=== PATIENT | female | born 1985 | race Two or more races ===

== ENCOUNTER 2024-07-23 08:40 | Emergency (ER) | payer MEDICAID, SELFPAY ==
[2024-07-23 09:03] VITALS: BP 102/66; PULSE 110; RESP 15; TEMP 37.3; O2SAT 98
[2024-07-23 09:19] VITALS: BP 123/70; PULSE 120; O2SAT 99; BMI 23.8
--- NOTE | 2024-07-23 09:29 | ED_ITS ---
HPI - URI/Sore Throat General Chief Complaint: Headache Stated Complaint: Headache, nausea, SOBx2 days per EMS Time Seen by Provider: 07/23/24 09:12 Source: patient and EMS Mode of arrival: EMS Limitations: no limitations History of Present Illness ED Provider: Kristina Cisneros PA-C HPI Narrative: 39 yo female presents to the ER for evaluation of SOB, headache, body aches, and sore throat that started last night. She reports diffuse aches and pains in her muscles and bones. She has a mild nonproductive cough. She reports subjective fevers and chills. No abdominal pain, N/V/D. No chest pain. She reports her daughter is home with a similar illness but milder symptoms. MD elicited complaint: fever, cough, sore throat and other (body aches, headache) Onset (ago): hour(s) Consistency: progressively worsening Severity: severe Able to tolerate fluids by mouth: Yes Exacerbating factors: nothing Relieving factors: nothing Context: sick contacts Associated symptoms: fever, chills, myalgias, headache, sore throat, cough and shortness of breath Treatments prior to arrival: none Related Data Previous Rx's ?Medication ?Instructions ?Recorded acetaminophen 650 mg 650 mg PO Q8H PRN fever or pain 07/23/24 tablet,extended release #14 tabs ibuprofen 600 mg tablet 600 mg PO Q8H PRN fever or pain 07/23/24 #14 tabs Allergies Allergy/AdvReac Type Severity Reaction Status Date / Time No Known Allergies Allergy Verified 07/23/24 09:41 [No Known Allergies*] Review of Systems Review of Systems: Yes all other systems are reviewed and are negative [facility] Social History Social History Advance Directives: No Advance Directives Information Provided: Yes Advance Directives on File: No Physical Exam Vital Signs: Vital Signs: Last Vital Signs Temp 99.2 F 07/23/24 09:03 Pulse 110 H 07/23/24 09:03 Resp 15 07/23/24 09:03 BP 102/66 07/23/24 09:03 Pulse Ox 98 07/23/24 09:03 O2 Del Method Room Air 07/23/24 09:03 BMI result Body Mass Index 23.8 Appearance: Alert. Oriented X3. No acute distress. Head: normocephalic, atraumatic. Eyes: Pupils equal, round and reactive to light. ENT: Pharynx normal. No tonsillar swelling or exudate. Neck: Normal inspection. Neck supple. CVS: Normal heart rate and rhythm. Pulses normal. Respiratory: No respiratory distress. Breath sounds normal. Abdomen: Soft and nontender. +BS x4 Skin: Skin warm and dry. Normal skin color. Normal skin turgor. No rashes. Extremities: No lower extremity edema. No joint swelling. Neuro/psych: Oriented X 3. grossly normal, nonfocal. Normal speech and cognition. Medications Administered Discontinued Medications Generic Name Dose Route Start Last Admin Trade Name Husam PRN Reason Stop Dose Admin Acetaminophen 975 mg 07/23/24 09:48 07/23/24 10:12 Acetaminophen 325 Mg Tablet PO 07/23/24 09:49 975 mg ONCE ONE Administration Ketorolac Tromethamine 15 mg 07/23/24 09:48 07/23/24 10:12 Ketorolac Tromethamine 15 Mg/Ml Vial IVPUSH 07/23/24 09:49 15 mg ONCE ONE Administration Medical Decision Making Medical Decision Making [facility] Narrative: 39 yo female presenting with myalgias, headache, fever/chills since last night. daughter home with what she thinks is the flu. she is unvaccinated. mild tachycardia on arrival, otherwise VSS. lungs are clear and physical exam unremarkable. main complaint is body aches. IVF given by EMS. will give toradol, tylenol and swab for covid, flu, rsv, strep swabs negative. patient feeling better after meds. most likely viral etiology. stable for d/c home. Differential Diagnosis Differential Diagnoses: The differential diagnosis associated with the presentation includes strep, covid, flu, rsv, other viral syndrome, bronchitis, pneumonia, no evidence of peritonsillar abcsess or retropharyngeal abscess Lab Data [facility] Lab Attestation statement: I reviewed the patient's lab results. Labs: Lab Results 07/23/24 07/23/24 Range/Units 09:30 10:38 Influenza Type A (PCR) NEGATIVE (Negative) Influenza Type B (PCR) NEGATIVE (Negative) RSV RNA Qual (PCR) NEGATIVE (Negative) SARS-CoV-2 RNA (RT-PCR) NEGATIVE (Negative) S. pyogenes GrpA MESHA Negative (Negative) Independent Historian Clinical information obtained from an independent historian. History obtained from or confirmed by: EMS External Record Review External record reviewed: Outpatient record and Prior outpatient labs Tests considered The following testing was considered but not selected: considered CXR, lungs clear. low suspicion for pna Prescription Management I considered prescription management with: Pain Medication, Antiviral and Antibiotic Critical Care Time Critical Care Time Critical Care Time: No Discharge Plan Discharge Clinical Impression: Acute viral syndrome Patient Disposition: Home, Self-Care Instructions: Viral Syndrome (ED) Additional Instructions: You were negative for COVID, Flu, RSV and Strep throat Your symptoms are likely due to another viral illness Rest. Drink plenty of fluids. Do not go out in public while you are not feeling well Take over the counter cold/flu medications as needed for your symptoms. Take Tylenol and Motrin as needed for fevers and body aches. Follow up with your doctor as needed If you develop new or worsening symptoms call 911 or come back to the ER for further evaluation. Prescriptions: New ibuprofen 600 mg tablet 600 mg PO Q8H PRN (Reason: fever or pain) Qty: 14 0RF acetaminophen 650 mg tablet extended release 650 mg PO Q8H PRN (Reason: fever or pain) Qty: 14 0RF Interventions: ED Discharge Assessment Last Done: 07/23/24 13:07 Print Language: Maori
[2024-07-23] MEDS: Acetaminophen 325 MG TABLET 975 MG PO (10:12)
[2024-07-23] MEDS: Ketorolac Tromethamine 15 MG/ML VIAL IVPUSH (10:12)
--- OUTSIDE RECORDS SUMMARY | 2024-07-23 10:19 | XMS_ITS | Encounter Summary ---
Author Organization [facility] Address [address] [place] [address] Care Team Providers Care Meeting Facilitator Name Role Phone Cynthia Pickett SENIOR QUALITY ANALYST Primary Care Provider [phone] Encounter Details Date Type Department Care Team (Late st Contact Info) Description 02/13/2022 Interim Notes [address] [address] [place] [address] [place] [address] Social History Tobacco Use Types Packs/Day Years Used Date Smoking Tobacco: Never Smokeless Tobacco: Never Alcohol Use Standard Drinks/Week Comments No 0 (1 standard drink = 0.6 oz pur e alcohol) Social Connections Answer Date Recorded Connectedness 0 01/02/2022 Financial Resource Strain Answer Date R ecorded Financial Resource Strain 0 2021 Stress Answer Date Recorded Stress 0 01/02/2022 Physical Activity Answer Date Recorded Physical Activity 0 01/31/2019 Food Insecurity Answer Date Recorded Food 0 01/02/2022 Transportation Needs Answer Date Record ed Transportation 0 01/02/2022 Housing Stability Answer Date Recorded Housing 0 01/02/2022 Safety and Environment Answer Date Connor rded Safety 1 05/01/2021 Utilities Answer Date Recorded Utilities 0 01/02/2022 Employment Answer Date Recorded Stress 0 08/27/2021 Comments No Sex and Gender Information Value Date Recorded Sex Assigned at Female 03/27/2017 7:05 AM PDT Legal Sex Female 11:37 AM PDT Gender Identity Female 03/27/2017 7:05 AM PDT Sexual Orientation Straight 03/31/2017 5: 55 AM PDT COVID-19 Exposure Response Date Recorded In the last 10 days, have yo u been in contact with someone who was confirmed or suspected to have Coronavirus/COVID-19? No / Unsure 02/05/2022 1:25 PM EDT documented as of this encounter Plan of Treatment Upcoming Encounters Date Type Department Care Team (Late st Contact Info) Description 08/17/2024 3:40 PM EDT Office Visit [facility] [address] [place] [address] Xochitl Hernández FNP [address] [place] [address] documented as of this encounter Visit Diagnoses Not on filedocumented in this encounter Additional Health Concerns Assessment Noted Time PHQ-9 Depression Total Score: 0 01/03/20 22 10:33 AM PDT documented as of this encounter Care Teams Meeting Facilitator Relationship Specialty Start Date End Date Cynthia Pickett FNP [address] [place] [address] PCP - General Internal Medicine 04/05/20 documented as of this encounter
--- OUTSIDE RECORDS SUMMARY | 2024-07-23 10:19 | XMS_ITS | Clinical Summary ---
Author Organization [facility] Address [address] [place] [address] Care Team Providers Care Industrial Cleaner Name Role Phone Cynthia Pickett [facility] Primary Care Provider [phone] Source Comments PLEASE NOTE, if this patient is a minor, it may be UNLAWFUL to discuss sensitive information that is contained in these records (such as FAMILY PLANNING, MENTAL HEALTH or SUBSTANCE ABUSE) with the minor patient's parent or other person without the patient's specific authorization.[facility] Allergies No known active allergies Medications clindamycin-stef zoyl peroxide (BENZACLIN) 1-5 % gelIndications: Acne vulgaris Apply topically 2 (two) times daily To acne 50 g 2 3 Active Active Problems Problem Noted Date Diagnosed Date History of COVID-19: 03/202105/01/2021 Hematuria 10/15/2020 Left flank pain 10/12/2020 Overview (10/15/2020): 07/10/2020: US of renal: [facility]: FINDINGS: Right kidney: 12.8 cm in length. No hydronephrosis, stone, or mass. Normal parenchymal thickness and echotexture Left kidney: 12.6 cm in length. No hydronephrosis, stone, or mass. Normal parenchymal thickness and echotexture. Urinary bladder: Normal. No stone, mass, wall thickening or debris. IMPRESSION: Normal kidneys and bladder. 07/10/2020: [facility]: uterus US: FINDINGS: UTERUS: Size: 10.8 x 4.8 x 6.0 cm, volume 164 cc. Endometrial thickness: 1.1 cm. Morphology: Normal configuration and echotexture. RIGHT OVARY: Size: 3.4 x 1.9 x 3.0 cm, volume 10.0 cc. Morphology: Normal echotexture. No pathologic cysts or mass. Normal color Doppler appearance. LEFT OVARY: Size: 4.5 x 2.8 x 2.6 cm, volume 17.3 cc. Morphology: Normal echotexture. Hypoechoic focus in the left ovary measures 1.8 x 1.4 x 1.1 cm. Normal color Doppler appearance. ADNEXA: Normal. No adnexal masses or fluid collections. IMPRESSION: 1.8 cm hypoechoic focus with minimal peripheral vascular flow in the left ovary likely represents an involuting corpus luteum. No cause for pelvic pain is appreciated. Encounters Date Type Department Care Team Description 06/24/2024 11:20 AM EST Office Visit [address] [address] Child, BANDAR Rios Dysuria (Primary Dx) 06/24/2024 Travel from Last 3 Months Immunizations Name Administration Dates Next Due Flu, Preservative Free 05/19/2021,03/06/2018 MENINGOCOCCAL MCV4P (MENACTRA) 05/11/2018 PNEUMOCOCCAL POLYSACCHARIDE PPV23 03/06/2018 PPD 11/06/2018,03/27/2017 TDAP 03/06/2018,05/30/2017 Family History Medical History Relation Name Comments Breast cancer Maternal Grandmother Relation Name Status Comments Father Alive Maternal Grandmother Mother Alive Social History Tobacco Use Types Packs/Day Years [...] and Environment Answer Date Connor rded Safety 0 08/02/2022 Utilities Answer Date Recorded Utilities 0 01/02/2022 Employment Answer Date Recorded Stress 0 08/27/2021 Comments Unknown Sex and Gender Information Value Date Recorded [...] suspected to have Coronavirus/COVID-19? No / Unsure 06/24/2024 11:03 AM EST Last Filed Vital Signs Vital Sign Reading Time Taken Comments Blood Pressure 112/77 06/24/2024 11:23 AM EST Pulse 88 06/24/2024 11:23 AM EST Temperature 36.8 ??C (98.3 ??F) 06/24/2024 11:[address] Respiratory Rate 16 06/24/2024 11:23 AM EST Oxygen Saturation 100% 07/24/2023 3:39 PM EST Inhaled Oxygen Concentration - - Weight 65.4 kg (144 lb 1.6 oz) 06/24/2024 11:23 AM EST Height 157.5 cm (5' 2 ) 07/24/2023 3:39 PM EST Body Mass Index 26.36 07/24/2023 3:39 PM EST Plan of Treatment Upcoming Encounters Date Type Department Care Team (Late st Contact Info) Description 08/17/2024 3:40 PM EDT Office Visit [facility] [address] [place] [address] Xochitl Hernández FNP [address] [place] [address] Health Maintenance Due Date Last Done Comments HPV Screening 1987 Pap + HPV 1987 Cervical Cancer Screening 2008 Pap Smear 2008 Breast Cancer Screening (Mammogram) 01/22/2022 01/22/2021 Relationship Safety Screening/Counseling 08/02/2023 08/02/2022, 05/01/2021, 04/07/2020 [id number] ( season) 2024 022, 06/22/2021 Imm-Influenza (#1) 2024 05/19/2021, 03/06/2018 Annual Preventive Care Visit 06/05/2024, 02/01/2022, 07/07/2020, Additional history exists Alcohol and Drug Screen 06/09/2024 08/02/19 23, 01/02/2022, 07/07/2020, Additional history exists Depression Annual Screen 06/09/2024 08/02/2022, 02/08 Tobacco Screening 07/24/2024 07/24/2023 Hypertension Screening (#1) 06/24/2025 Diabetes Screening 06/05/2026 06/05/2023, 0 02/01/2022, 02/01/2022, Additional history exists Imm-DTaP/Tdap/Td (4 - Td or Tdap) 01/05/2034 01/06/2024, 03/06/2018, 05/30/2017 Hepatitis C Screening Completed 04/06/2018 , 04/06/2018, 04/06/2018, Additional history exists HIV Screening Completed 04/07/2020 Cervical Ablation/Cold-Knife Conization Discontinued Cervical Cryotherapy Discontinued Colposcopy Discontinued Endometrial Biopsy Discontinued Excision/Leep Discontinued HPV Genotyping Discontinued Imm-Hepatitis B Discontinued Vaginal Pap Discontinued Vulvoscopy Discontinued Procedures Procedure Name Priority Date/Time Associated Diagnosis Comments RFLX - REFLEXIVE URINE CULTURE Routine 06/24/2024 11:40 AM EST URINALYSIS, COMPLETE W/REFLEX TO CULTURE Routine 06/24/2024 11:40 AM EST Dysuria HCG URINE MCKESSON (POCT) Routine 06/24/2024 11:37 AM EST Dysuria URINALYSIS, MULTISTIX (POCT) Routine 06/24/2024 11:37 AM EST Dysuria BASIC METABOLIC PANEL CALCIUM TOTAL Routine 06/05/2023 11:57 AM EST Screening due Weight gain ANTIBODY HIV-1&HIV-2 SINGLE RESULT Routine 04/07/2020 4:05 PM EDT Encounter for laboratory test HEPATITIS A,B,C PANEL Routine 04/06/2018 1:29 PM EDT Routine general medical examination at a [facility] care facility from Last 3 Months or Most Recently Relevant to Health Maintenance Results * (ABNORMAL) URINALYSIS, COMPLETE W/REFLEX TO CULTURE (06/24/2024 11:40 AM EST) COLOR YELLOW YELLOW [employer] APPEARANCE CLOUDY(A) CLEAR [employer] SPECIFIC GRAVITY 1.009 1.001 - 1.035 [employer] URINE PH 5.5 5.0 - 8.0 [employer] GLUCOSE NEGATIVE NEGATIVE [employer] BILIRUBIN NEGATIVE NEGATIVE [employer] KETONES NEGATIVE NEGATIVE [employer] OCCULT BLOOD NEGATIVE NEGATIVE [employer] URINE PROTEIN NEGATIVE NEGATIVE [employer] NITRITE NEGATIVE NEGATIVE [employer] LEUKOCYTE ESTERASE NEGATIVE NEGATIVE [employer] URINE LEUKOCYTES NONE SEEN < OR = 5 [employer] RBC NONE SEEN < OR = 2 [employer] SQUAMOUS EPITHELIAL CELLS 20-40(A) < OR = 5 /HPF [employer] BACTERIA NONE SEEN NONE SEEN [employer] HYALINE CAST NONE SEEN NONE SEEN [employer] SEE NOTE See Below [employer] Comment: This urine was analyzed for the presence of WBC, RBC, bacteria, casts, and other formed elements. Only those elements seen were reported. Urine Urine specimen / Unknown 06/24/2024 11:40 AM EST 06/25/2024 7:23 AM EST Gabriel Franco PA-C LAB - NO BLOOD DRAW Final Res ult [employer] [address] [place] [address], [employer] [address] [place] [id number] * RFLX - REFLEXIVE URINE CULTURE (06/24/2024 11:40 AM EST) REFLEXIVE URINE CULTURE See Below [employer] Comment:NO CULTURE INDICATED 06/24/2024 11:4 0 AM EST 06/25/2024 7:23 AM EST Gabriel CARVAJAL-C LAB - NO BLOOD DRAW Final Res ult Performing Organization Address City/[facility] Co de Phone Number [facility] [address] [address], [facility] [address] [address] * (ABNORMAL) URINALYSIS, MULTISTIX (POCT) (06/24/2024 11:37 AM EST) URINE GLUCOSE NEGATIVE NEGATIVE [facility] POCT URINE BILIRUBIN NEGATIVE NEGATIVE [facility] POCT URINE KETONES NEGATIVE NEGATIVE [facility] POCT URINE SPECIFIC GRAVITY 1.010 <=1.005 - >=1.030 [facility] URINE BLOOD SMALL(A) NEGATIVE [facility] URINE PH 5.5 5.0 - 8.5 [facility] URINE PROTEIN Negative Negative [facility] URINE UROBILINOGEN 0.2 0.2 - 1.0 E.U./dL [facility] URINE NITRITE NEGATIVE NEGATIVE [facility] URINE LEUKOCYTES NEGATIVE NEGATIVE [facility] POCT URINE COLOR LIGHT YELLOW STRAW, YELLOW [facility] ODOR URINE Normal Normal [facility] CLARITY OF URINE CLEAR CLEAR [facility] POCT Urine Urine specimen / Unknown 06/24/2024 11:37 AM EST Gabriel CARVAJAL-C LAB - NO BLOOD DRAW Final Res ult Performing Organization Address City/[facility]/ZIP Co de Phone Number [facility] * HCG URINE MCKESSON (POCT) (06/24/2024 11:37 AM EST) URINE HCG NEGATIVE NEGATIVE [facility] POCT INTERNAL CONTROL PASS PASS [facility] POCT Urine Urine specimen / Unknown 06/24/2024 11:37 AM EST Gabriel Franco PA-C LAB - NO BLOOD DRAW Final Res ult [facility] POCT * BASIC METABOLIC PANEL CALCIUM TOTAL (06/05/2023 11:57 AM EST) GLUCOSE 79 65 - 99 mg/dL [employer] Comment: ?Fasting reference interval UREA NITROGEN (BUN) 13 7 - 25 mg/dL [employer] CREATININE (blood) 0.68 0.50 - 0.97 mg/dL [employer] EGFR 116 > OR = 60 mL/min/1. 73m2 [employer] BUN/CREATININE RATIO SEE NOTE: [employer] Comment: ?? Not Reported: BUN and Creatinine are within ?? reference range. ? SODIUM 136 135 - 146 mmol/L [employer] POTASSIUM 4.6 3.5 - 5.3 mmol/L [employer] CHLORIDE 104 98 - 110 mmol/L [employer] CARBON DIOXIDE 26 20 - 32 mmol/L [employer] CALCIUM 9.4 8.6 - 10.2 mg/dL [employer] Blood Blood / Unknown 06/05/2023 1 1:57 AM EST 06/05/2023 11:58 AM EST Petty Peter PA-C LAB - BLOOD DRAW Edited Res ult - Final [email or web address] [address] [address], [employer] [address] [address] * HIV-1 & HIV-2 ANTIBODIES (04/07/2020 4:05 PM EDT) HIV 1 AND 2 ANTIBODY SCREEN NEGATIVE NEGATIVE [facility] Comment: This assay is a 4th generation assay allowing for earlier detection of HIV infection by detecting the presence of the HIV-1 p24 antigen as well as the traditional antibodies to HIV type 1 (including group O) and type 2. ??Use of a 4th generation assay is the current CDC recommendation for HIV screening. Blood Blood / Unknown 04/07/2020 4 :05 PM EDT 04/07/2020 4:34 PM EDT [facility] - 04/07/2020 8:08 PM EDT [facility], a member of [address] [address] Car Carder - Alma Rosa Irby MD [place] [id number] ORD# [id number] Cynthia Pickett FORENSIC TOXICOLOGIST LAB - BLOOD DRAW Final Result [address] [address], [place] [phone] * (ABNORMAL) HEPATITIS A,B,C PANEL (04/06/2018 1:29 PM EDT) Pathologist [facility] HEPATITIS B SURFACE ANTIGEN NEGATIVE NEGATIVE [facility] Comment: Over the counter supplements containing high doses of biotin may interfere with this assay. ??If interference is suspected, patients shoud be retested after refraining from biotin supplements for 72 hours. HEPATITIS B SURFACE ANTIBODY POSITIVE(A) NEGATIVE [facility] HEPATITIS C VIRUS DIAGNOSTIC NEGATIVE NEGATIVE [facility] 04/06/2018 1:29 PM EDT 04/06/2018 1:29 PM EDT [facility] - 04/06/2018 2:37 PM EDT [facility] [address] [place] [address] PT ID [id number] ORD# [id number] Charley Begum FORENSIC TOXICOLOGIST LAB - BLOOD DRAW Final Result Performing Organization Address [facility]/ZIP Co de Phone Number [address] [address], [place] [phone] from Last 3 Months or Most Recently Relevant to Health Maintenance Insurance [place] [employer] [place] [address] [place] [address] PLAN Member Subscriber Plan / Payer (Ef fective 2023-Present) Name:Juliane Moeller Relation to Subscriber:Self Name:Juliane Moeller Payer ID:[id number] Group ID:Not on file Type:Medicaid Address: [address] [address] [place] [address] Care Teams Industrial Cleaner Relationship Specialty Start Date End Date Cynthia Pickett FNP [address] [place] [address] PCP - General Internal Medicine 04/05/20
--- OUTSIDE RECORDS SUMMARY | 2024-07-23 10:19 | XMS_ITS | Encounter Summary ---
Author Organization [facility] Address [address] [place] [address] Care Team Providers Care Ergonomics Technician Name Role Phone Cynthia Pickett SENIOR CHEMICAL ENGINEER Primary Care Provider [phone] Encounter Details Date Type Department Care Team (Latest Contact Info) Description 06/24/2024 Travel Social History Tobacco Use Types Packs/Day Years [...] No / Unsure 06/24/2024 11:03 AM EST documented as of this encounter Plan of Treatment Upcoming Encounters Date Type Department Care Team (Late st Contact Info) Description 08/17/2024 3:40 PM EDT Office Visit [facility] [address] [place] [address] Xochitl Hernández FNP [address] [place] [address] documented as of this encounter Visit Diagnoses Not on filedocumented in this encounter Additional Health Concerns Assessment Noted Time PHQ-9 Depression Total Score: 0 08/02/19 23 1:14 PM PST documented as of this encounter Care Teams Ergonomics Technician Relationship Specialty Start Date End Date Cynthia Pickett FNP [facility] [place] [address] PCP - General Internal Medicine 04/05/20 documented as of this encounter
--- OUTSIDE RECORDS SUMMARY | 2024-07-23 10:19 | XMS_ITS | Encounter Summary ---
Author Organization [facility] Address [address] [place] [address] Care Team Providers Care Kindergarten Classroom Teacher Name Role Phone Cynthia Pickett MARISOL Primary Care Provider [phone] Reason for Visit * Reason Comments Abdominal Pain Left side abdomen pa in wile urinating x 10 days. Denies itchiness, d/c or blood Encounter Details Date Type Department Care Team ([facility] st Contact Info) Description 06/24/2024 11:20 AM EST Office Visit [facility] [address] [place] [phone] Child, BANDAR Rios [address] [place], [place] [phone] Dysuria (Primary Dx) Social History Tobacco Use Types Packs/Day Years [...] AM EST documented as of this encounter Last Filed Vital Signs Vital Sign Reading Time Taken Comments Blood Pressure 112/77 06/24/2024 11:23 AM EST Pulse 88 06/24/2024 11:23 AM EST Temperature 36.8 ??C (98.3 ??F) 06/24/2024 11:[address] Respiratory Rate 16 06/24/2024 11:23 AM EST Oxygen Saturation - - Inhaled Oxygen Concentration - - Weight 65.4 kg (144 lb 1.6 oz) 06/24/2024 11:23 AM EST Height - - Body Mass Index 26.36 07/24/2023 3:39 PM EST documented in this encounter Progress Notes * Genesis Lamb - 06/24/2024 11:26 AM EST Subjective: CC: Abdominal Pain (Left side abdomen pain wile urinating x 10 days. Denies itchiness, d/c or blood) HPI: Juliane Moeller is a 39 year old female patient who presents as walk-in to urgent care for evaluation of predominantly left sided pelvic pain. She endorses sharp left sided pelvic pain when urinating x 10 days. She reports the pain is bilateral but worse on the left. She denies pain when she is not urinating. She endorses polyuria and malodorous urine. She denies vaginal discharge or vaginal pain with discharge. She reports the pain is staying the same and denies taking any medication for pain relief. Of note she is 3 months post with twins, and also has a 7 year old daughter. She developed preeclampsia after her most recent delivery. No Known Allergies Patient Active Problem List Diagnosis Left flank pain Hematuria History of COVID-19: 03/2021 Current Outpatient Medications: clindamycin-benzoyl peroxide (BENZACLIN) 1-5 % gel, Apply topically 2 (two) times daily To acne, Disp: 50 g, Rfl: 2 Review of Systems Remainder ROS: See HPI, systems reviewed and are otherwise negative or noncontributory. Objective: BP 112/77 (Right Arm, Sitting, Regular Adult) Pulse 88 Temp 98.3 ??F (36.8 ??C) Resp 16 Wt 144 lb 1.6 oz (65.4 kg) LMP 06/13/2024 (Exact Date) BMI 26.36 kg/m?? OB Status Unknown Smoking Status Never BSA 1.69 m?? Physical Exam General: NAD, AAOx3 HEENT: Normocephalic, atraumatic. PERRL, EOMI. Lungs: CTA b/l, Moving air without difficulty, CV: RRR, S1S2+, Pulses palpable Neuro: No gross neurological abnormalities noted on exam. Ext: no edema, ROM intact Abd: Soft, non-distended. TTP in lower abdomen bilaterally. Assessment and Plan: Juliane Moeller is a 39 year old female patient who was seen today as a walk-in at urgent carefor evaluation of dysuria. R30.0 Dysuria (primary encounter diagnosis) Plan : URINALYSIS, MULTISTIX (POCT) HCG URINE MCKESSON (POCT) URINALYSIS, COMPLETE W/REFLEX TO CULTURE - UA inconsistent with UTI - Signs and symptoms very consistent with UTI. Patient defers treatment and prefers to wait for urine culture prior to treatment - Will call back when culture results Teaching-Supervisory Addendum-Brief I participated in the following activities of this patients care: I, Gabriel Franco PA-C, have evaluated the patient and discussed the care with the student. I agreewith the student's written findings and plan, except as noted. documented in this encounter Plan of Treatment Upcoming Encounters Date Type Department Care Team (Late st Contact Info) Description 08/17/2024 3:40 PM EDT Office Visit [facility] [address] [place] [phone] Xochitl Hernández FNP [address] [place] [id number] documented as of this encounter Procedures Procedure Name Priority Date/Time Associated Diagnosis Comments URINALYSIS, COMPLETE W/REFLEX TO CULTURE Routine 06/24/2024 11:40 AM EST Dysuria RFLX - REFLEXIVE URINE CULTURE Routine 06/24/2024 11:40 AM EST URINALYSIS, MULTISTIX (POCT) Routine 06/24/2024 11:37 AM EST Dysuria HCG URINE MCKESSON (POCT) Routine 06/24/2024 11:37 AM EST Dysuria documented in this encounter Results * RFLX - REFLEXIVE URINE CULTURE (06/24/2024 11:40 AM EST) REFLEXIVE URINE CULTURE See Below [facility]aged [facility] Comment:NO CULTURE INDICATED 06/24/2024 11:4 0 AM EST 06/25/2024 7:23 AM EST Gabriel Franco PA-C LAB - NO BLOOD DRAW Final Res ult Performing Organization Address City/State/[facility] Co de Phone Number August [address] [address], August [address] [phone] * (ABNORMAL) URINALYSIS, COMPLETE W/REFLEX TO CULTURE (06/24/2024 11:40 AM EST) COLOR YELLOW YELLOW August [facility] APPEARANCE CLOUDY(A) CLEAR August [facility] SPECIFIC GRAVITY 1.009 1.001 - 1.035 August [facility] URINE PH 5.5 5.0 - 8.0 August [facility] GLUCOSE NEGATIVE NEGATIVE August [facility] BILIRUBIN NEGATIVE NEGATIVE August [facility] KETONES NEGATIVE NEGATIVE August [facility] OCCULT BLOOD NEGATIVE NEGATIVE August [facility] URINE PROTEIN NEGATIVE NEGATIVE August [facility] NITRITE NEGATIVE NEGATIVE August [facility] LEUKOCYTE ESTERASE NEGATIVE NEGATIVE August [facility] URINE LEUKOCYTES NONE SEEN < OR = 5 August [facility] RBC NONE SEEN < OR = 2 August [facility] SQUAMOUS EPITHELIAL CELLS 20-40(A) < OR = 5 /HPF August [facility] BACTERIA NONE SEEN NONE SEEN August [facility] HYALINE CAST NONE SEEN NONE SEEN August [facility] SEE NOTE See Below August [facility] Comment: This urine was analyzed for the presence of WBC, RBC, bacteria, casts, and other formed elements. Only those elements seen were reported. Urine Urine specimen / Unknown 06/24/2024 11:40 AM EST 06/25/2024 7:23 AM EST [facility] LAB - NO BLOOD DRAW Final Res ult Performing Organization Address City/[facility]/ZIP Co de Phone Number August [address] [address], August [address] [phone] * HCG URINE MCKESSON (POCT) (06/24/2024 11:37 AM EST) URINE HCG NEGATIVE NEGATIVE [facility]- BACK OFFICE POCT INTERNAL CONTROL PASS PASS [facility]- BACK OFFICE POCT Urine Urine specimen / Unknown 06/24/2024 11:37 AM EST [facility] LAB - NO BLOOD DRAW Final Res ult Performing Organization Address City/[facility]/ZIP Co de Phone Number [facility]- BACK OFFICE POCT * (ABNORMAL) URINALYSIS, MULTISTIX (POCT) (06/24/2024 11:37 AM EST) URINE GLUCOSE NEGATIVE NEGATIVE [facility]- BACK OFFICE POCT URINE BILIRUBIN NEGATIVE NEGATIVE [facility]- BACK OFFICE POCT URINE KETONES NEGATIVE NEGATIVE [facility]- BACK OFFICE POCT URINE SPECIFIC GRAVITY 1.010 <=1.005 - >=1.030 [facility]- BACK OFFICE POCT URINE BLOOD SMALL(A) NEGATIVE [facility]- BACK OFFICE POCT URINE PH 5.5 5.0 - 8.5 [facility]- BACK OFFICE POCT URINE PROTEIN Negative Negative [facility]- BACK OFFICE POCT URINE UROBILINOGEN 0.2 0.2 - 1.0 E.U./dL [facility]- BACK OFFICE POCT URINE NITRITE NEGATIVE [...] - NO BLOOD DRAW Final Res ult [facility] BACK OFF[facility] POCT documented in this encounter Visit Diagnoses Diagnosis Dysuria- Primary documented in this encounter Additional Health Concerns Assessment Noted Time PHQ-9 Depression Total Score: 0 08/02/19 23 1:14 PM PST documented as of this encounter Care Teams Kindergarten Classroom Teacher Relationship Specialty Start Date End Date Cynthia Pickett FNP [address] [place] [id number] PCP - General Internal Medicine 04/05/20 documented as of this encounter
[2024-07-23 10:22] LABS: Influenza A PCR NEGATIVE (Negative); Influenza B PCR NEGATIVE (Negative); Resp Syncy Virus RNA Qual PCR NEGATIVE (Negative); SARS COV2 PCR INHOUSE NEGATIVE (Negative)
[2024-07-23 11:29] LABS: IDNOW Serial# 58CA691E; Strep A Nucleic Acid Negative (Negative)
[2024-07-23 13:06] VITALS: BP 91/50; PULSE 114; RESP 18; TEMP 36.7; O2SAT 97
[2024-07-23 13:07] VITALS: BP 91/50; PULSE 114; RESP 18; TEMP 36.7; O2SAT 97
== END 2024-07-23 13:08 | disposition home or self-care (01) ==
PROVIDERS: Physician Assistant; Emergency Provider Emergency Medicine; PCP Nurse Practitioner Family
DX: B34.9 Viral infection, unspecified (principal); R11.2 Nausea with vomiting, unspecified; R06.02 Shortness of breath; M79.10 Myalgia, unspecified site; R05.9 Cough, unspecified; R50.9 Fever, unspecified; Z03.818 Encounter for observation for suspected exposure to other biological agents ruled out
CPT/HCPCS: 0241U; 87651; 96374; 99284; J1885